=== PATIENT | male | born 1985 | race Caucasian/White ===

== ENCOUNTER 2017-11-26 23:10 | Emergency (ER) | payer BC, OTHER ==
[2017-11-26] MEDS ORDERED: TORAdol 30 mg Injection IM ONE (23:21)
[2017-11-26] MEDS ORDERED: Rocephin 1000 MG INJ IM ONE (23:21)
[2017-11-26] MEDS ORDERED: Rocephin 1000 MG INJ ONE (23:25)
[2017-11-26] MEDS ORDERED: TORAdol 30 mg Injection ONE ×2 (23:25→23:30)
--- NOTE | 2017-11-26 23:32 | ERPHSYRPT ---
- History of Present Illness Time Seen by Provider: 11/26/17 23:22 Source: patient Exam Limitations: no limitations (physical lately we do the whole ) Patient Subjective Stated Complaint: pt states he has beenhaving rt jaw pain and swelling since yesterday. Triage Nursing Assessment: pt alert and oriented, answers questions approp. pt ambulatoryw ith steady gait noted, respirations nonlabored with lungs cta. skin warm and dry. swelling noted to rt lower jaw. broken tooth noted to rt lower mouth with swelling of gums ntoed. Physician History: 32-year-old white male arrives with complaint of pain in the right mandibular region and swelling symptoms since yesterday. Denies injury. Past medical history includes pneumonitis, he states he had an autoimmune disease in the past old chart shows sarcoidosis. Past surgical history includes shoulder surgery ORIF of the right femur. Social history positive tobacco use. Timing/Duration: yesterday Severity: moderate Modifying Factors: Improves With: nothing Associated Symptoms: other (pain and swelling right mandibular region), No nausea, No vomiting, No abdominal pain, No shortness of breath, No heartburn, No diaphoresis, No cough, No chills, No chest pain, No fever, No headaches, No loss of appetite, No malaise, No rash, No syncope, No seizure, No weakness Allergies/Adverse Reactions: No Known Drug Allergies Allergy (Verified 11/26/17 23:27) Hx Tetanus, Diphtheria Vaccination/Date Given: Yes Hx Influenza Vaccination/Date Given: No Hx Pneumococcal Vaccination/Date Given: No Immunizations Up to Date: Yes - Review of Systems Constitutional: No Symptoms Eyes: No Symptoms Ears, Nose, & Throat: Mouth Pain, Mouth Swelling, No Ear Pain, No Ear Discharge , No Hearing Changes, No Tinnitus, No Nose Pain, No Nose Congestion, No Nose Discharge, No Sinus Drainage, No Epistaxis, No Loose Teeth, No Throat Pain, No Throat Swelling, No Hoarse, No Painful Swallowing, No Snoring, No Stridor Respiratory: No Cough, No Dyspnea Cardiac: No Chest Pain, No Edema, No Syncope Abdominal/Gastrointestinal: No Abdominal Pain, No Nausea, No Vomiting, No Diarrhea Genitourinary Symptoms: No Dysuria Musculoskeletal: No Back Pain, No Neck Pain Skin: No Symptoms, No Rash Neurological: No Dizziness, No Focal Weakness, No Sensory Changes Psychological: No Symptoms Endocrine: No Symptoms All Other Systems: Reviewed and Negative - Past Medical History Pertinent Past Medical History: Yes Respiratory History: Other Musculoskeletal History: Other History: Other Other Medical History: SARCOIDOSIS, CHRISTINA IN RT FEMUR - Past Surgical History Past Surgical History: Yes (ORIF right femur) - Social History Smoking Status: Never smoker Exposure to second hand smoke: No Drug Use: none Patient Lives Alone: No - Nursing Vital Signs Nursing Vital Signs: Initial Vital Signs Temperature 98.7 F 11/26/17 23:17 Pulse Rate 85 11/26/17 23:17 Respiratory Rate 16 11/26/17 23:17 Blood Pressure 188/123 11/26/17 23:17 O2 Sat by Pulse Oximetry 97 11/26/17 23:17 Pain Scale Pain Intensity 8 - Physical Exam General Appearance: mild distress, alert, other (well-developed well-nourished white male, swelling in the right mandibular region) Eye Exam: PERRL/EOMI, eyes nml inspection Ears, Nose, Throat Exam: TMs normal, pharynx normal, moist mucous membranes, other (carious teeth in the right mandibular region swelling and tenderness of the mandibular region correspondg to these, area tender with palpation) Neck Exam: normal inspection, non-tender, supple, full range of motion Respiratory Exam: normal breath sounds, lungs clear, No respiratory distress Cardiovascular Exam: regular rate/rhythm, normal heart sounds, normal peripheral pulses Gastrointestinal/Abdomen Exam: soft, normal bowel sounds, No tenderness, No mass Back Exam: normal inspection, normal range of motion, No CVA tenderness, No vertebral tenderness Extremity Exam: normal inspection, normal range of motion, pelvis stable Neurologic Exam: alert, oriented x 3, cooperative, 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, normal mood/affect, nml cerebellar function, nml station & gait, sensation nml, No motor deficits Skin Exam: normal color, warm, dry, No rash Lymphatic Exam: No adenopathy SpO2 Interpretation: normal (97%) SpO2: 97 Oxygen Delivery: Room Air - Course Nursing assessment & vital signs reviewed: Yes Ordered Tests: Medication Summary Discontinued Medications Generic Name Dose Route Start Last Admin Trade Name Freq PRN Reason Stop Dose Admin Hydrocodone Bitart/Acetaminophen 2 tab 11/26/17 23:36 [place] 5/325 Mg PO 11/26/17 23:37 SENT HOME W/ PATIENT ONE Ceftriaxone Sodium 1,000 mg 11/26/17 23:21 Rocephin 1000 Mg Inj IM 11/26/17 23:22 STAT ONE Ceftriaxone Sodium Confirm 11/26/17 23:25 Rocephin 1000 Mg Inj Administered 11/26/17 23:26 Dose 1,000 mg .ROUTE .STK-MED ONE Clindamycin HCl 300 mg 11/26/17 23:36 Cleocin 150 Mg Capsule PO 11/26/17 23:37 STAT ONE Ketorolac Tromethamine 60 mg 11/26/17 23:21 Toradol 30 Mg Injection IM 11/26/17 23:22 STAT ONE Ketorolac Tromethamine Confirm 11/26/17 23:25 Toradol 30 Mg Injection Administered 11/26/17 23:26 Dose 30 mg .ROUTE .STK-MED ONE Ketorolac Tromethamine Confirm 11/26/17 23:30 Toradol 30 Mg Injection Administered 11/26/17 23:31 Dose 30 mg .ROUTE .STK-MED ONE - Progress Progress: improved Progress Note: 11/26/17 23:31 32-year-old white male arrives with complaint of pain and swelling in the right mandibular region patient with carious teeth in this area. This is been going on for 2 days. On physical examination patient has a carious teeth, dental abscess right mandibular region. Will go ahead and give the patient Rocephin 1 g IM Toradol 60 mg IM home with prescription for [place] and clindamycin patient will need to follow-up with his dentist. . 11/26/17 23:37 the patient's blood pressure somewhat elevated however he states he has white coat syndrome and he is having pain. Patient will be advised to follow-up with his family doctor to have his blood pressure rechecked. - Departure Time of Disposition: 23:31 Departure Disposition: Home Clinical Impression: Pain due to dental caries, Dental abscess Condition: Fair Critical Care Time: No Referrals: CARMEN BRAVO NP [Primary Care Provider] - Additional Instructions: Return home Clindamycin and [place] as prescribed Cold packs to area (external) 24-48 hours Avoid excessively hot or cold foods Follow-up with your dentist. Return for acute distress or for severe symptoms. Prescriptions: Clindamycin HCl 300 mg PO TID #30 capsule Hydrocodone/Acetaminophen [[place] 5-325 Tablet] 1 tab PO Q4-6HPRN PRN #12 tablet MDD 6 tablets PRN Reason: Pain
[2017-11-26] MEDS ORDERED: CLEOCIN 150 MG CAPSULE PO ONE (23:36)
[2017-11-26] MEDS ORDERED: NORCO 5/325 MG PO ONE (23:36)
[2017-11-26] MEDS ORDERED: CLEOCIN 150 MG CAPSULE ONE (23:40)
[2017-11-26] MEDS ORDERED: NORCO 5/325 MG ONE (23:40)
[2017-11-27 00:09] VITALS: BP 158/107; PULSE 86; O2SAT 96
== END 2017-11-27 00:09 | disposition home or self-care (01) ==
LOC: ED 23:10
DX: K02.9 Dental caries, unspecified (principal); K04.7 Periapical abscess without sinus
CPT/HCPCS: 99283; J0696; J1885; A9270-GY

== ENCOUNTER 2018-02-01 01:50 | Emergency (ER) | payer BC ==
[2018-02-01] MEDS: BABY ASPIRIN 81 MG CHEW PO ONE (02:09)
--- NOTE | 2018-02-01 02:13 | ERPHSYRPT ---
- History of Present Illness Time Seen by Provider: 02/01/18 02:01 Historian: patient Exam Limitations: no limitations Patient Subjective Stated Complaint: Pt arrives to ER clutching left chest grunting his respirations and yelling out in pain refusing to properly answer questions mumbling and giving short vague responses. Pt has great color and is not diaphoretic. Pt tachycardic 115bpm ST and decreasing as he calms himself down. BP is probably inaccurate d/t voluntary tensing of his arm and rolling around in bed as if in pain. pt states this chest pain began around midnight induced by an arguement with his from which he walked away and the pain became so bad his father drove him here. Triage Nursing Assessment: see above Physician History: This is a 32-year-old white male with history of pneumonitis sarcoidosis. Who arrives with complaint of pain in his left anterior chest. Sharp in nature which began after patient had an argument with his . He denies shortness of breath no nausea no vomiting. Past medical history includes pneumonitis and sarcoidosis. . Past surgical history includes shoulder surgery ORIF of the right femur. Timing/Duration: today Activities at Onset: emotional stress Quality: sharpness Location: other (left upper anterior chest) Chest Pain Radiation: no radiation Severity of Pain-Max: moderate Severity of Pain-Current: moderate Modifying Factors: Improves With: nothing Associated Symptoms: No nausea, No vomiting, No palpitations, No heartburn, No abdominal pain, No shortness of breath, No cough, No hurts to breathe, No diaphoresis, No chills, No fever, No fatigue, No weakness, No swelling/lump in chest ( Auty just a few short ), No syncope, No rash, No headache, No dizziness , No edema, No back pain Nitro Today/Relief: no nitro taken today Aspirin Treatment Today: 81 mg x 4, provided by ED Allergies/Adverse Reactions: No Known Drug Allergies Allergy (Verified 02/01/18 02:08) Hx Tetanus, Diphtheria Vaccination/Date Given: Yes Hx Influenza Vaccination/Date Given: No Hx Pneumococcal Vaccination/Date Given: No - Review of Systems Constitutional: No Fever, No Chills Eyes: No Symptoms Ears, Nose, & Throat: No Symptoms Respiratory: No Cough, No Dyspnea Cardiac: Chest Pain (sharp pain left upper chest) Abdominal/Gastrointestinal: No Abdominal Pain, No Nausea, No Vomiting, No Diarrhea Genitourinary Symptoms: No Dysuria Musculoskeletal: No Back Pain, No Neck Pain Skin: No Rash Neurological: No Dizziness, No Focal Weakness, No Sensory Changes Psychological: No Symptoms Endocrine: No Symptoms All Other Systems: Reviewed and Negative - Past Medical History Pertinent Past Medical History: Yes Respiratory History: Other Musculoskeletal History: Other History: Other Other Medical History: SARCOIDOSIS, CHRISTINA IN RT FEMUR - Past Surgical History Past Surgical History: Yes - Social History Smoking Status: Former smoker Exposure to second hand smoke: No Drug Use: none Patient Lives Alone: No - Nursing Vital Signs Nursing Vital Signs: Initial Vital Signs Temperature 98.5 F 02/01/18 01:50 Pulse Rate 117 H 02/01/18 01:50 Respiratory Rate 24 02/01/18 01:50 Blood Pressure 143/107 02/01/18 01:50 O2 Sat by Pulse Oximetry 98 02/01/18 01:50 Pain Scale Pain Intensity 0 - Physical Exam General Appearance: other (well-developed well-nourished white male crying) Eye Exam: PERRL/EOMI, eyes nml inspection Ears, Nose, Throat Exam: normal ENT inspection, moist mucous membranes Neck Exam: normal inspection, non-tender, supple, full range of motion Respiratory Exam: normal breath sounds, lungs clear, No respiratory distress Cardiovascular Exam: regular rate/rhythm, normal heart sounds Gastrointestinal/Abdomen Exam: soft, No tenderness, No mass Back Exam: normal inspection, No CVA tenderness, No vertebral tenderness Extremity Exam: normal inspection, normal range of motion Neurologic Exam: alert, oriented x 3, cooperative, 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, normal mood/affect, sensation nml, No motor deficits Skin Exam: normal color, warm, dry SpO2 Interpretation: normal (98%) SpO2: 98 Oxygen Delivery: Room Air - Course Nursing assessment & vital signs reviewed: Yes EKG Interpreted by Me: RATE (120 bpm), Sinus Rhythm, NORMAL AXIS, Other (ekg: sinus tacchycardia 120 bpm, axis SI/QIII pattern no acute st or t wave changes noted.) - Radiology Exams Chest X-ray Interpretation: Interpreted by me (no acute disease process noted) Ordered Tests: Active Orders 24 hr Category Date Time Status Multimedia Designer STAT Care 02/01/18 02:06 Active EKG-ER Only STAT Care 02/01/18 02:05 Active IV Insertion STAT Care 02/01/18 02:05 Active Pulse Oximetry (ED) STAT Care 02/01/18 02:05 Active CHEST 1 VIEW (PORTABLE) Stat Exams 02/01/18 02:06 Taken ACETAMINOPHEN Stat Lab 02/01/18 02:15 Completed AMYLASE Stat Lab 02/01/18 02:15 Completed CBC W DIFF Stat Lab 02/01/18 02:15 Completed CMP Stat Lab 02/01/18 02:15 Completed D-DIMER QUANTITATION Stat Lab 02/01/18 02:15 Completed ETHYL ALCOHOL Stat Lab 02/01/18 02:15 Completed LIPASE Stat Lab 02/01/18 02:15 Completed Manual Differential NC Stat Lab 02/01/18 02:15 Completed PROTIME WITH INR Stat Lab 02/01/18 02:15 Completed PTT Stat Lab 02/01/18 02:15 Completed SALICYLATE Stat Lab 02/01/18 02:15 Completed TROPONIN Q3H Lab 02/01/18 02:15 Completed TROPONIN Q3H Lab 02/01/18 08:15 Ordered TROPONIN Q3H Lab 02/01/18 11:15 Ordered TROPONIN Q3H Lab 02/01/18 14:15 Ordered Urine Triage Profile Stat Lab 02/01/18 03:22 Completed Medication Summary Discontinued Medications Generic Name Dose Route Start Last Admin Trade Name Erasmoq PRN Reason Stop Dose Admin Aspirin 324 mg 02/01/18 02:05 02/01/18 02:09 Baby Aspirin 81 Mg Chew PO 02/01/18 02:06 324 mg STAT ONE Administration Aspirin Confirm 02/01/18 03:49 Baby Aspirin 81 Mg Chew Administered 02/01/18 03:50 Dose 324 mg .ROUTE .STK-MED ONE Sodium Chloride Confirm 02/01/18 03:28 Sodium Chloride 0.9% 1000 Ml Administered 02/01/18 03:29 Dose 1,000 mls @ ud .ROUTE .STK-MED ONE Thiamine HCl Confirm 02/01/18 04:06 Thiamine 200 Mg/2 Ml Administered 02/01/18 04:07 Dose 200 mg .ROUTE .STK-MED ONE Lab/Rad Data: Laboratory Result Diagrams 02/01/18 02:15 02/01/18 02:15 Laboratory Results 02/01/18 02/01/18 02/01/18 Range/Units 03:22 02:15 02:15 WBC (4.0-10.5) K/mm3 RBC (4.1-5.6) M/mm3 Hgb (12.5-18.0) gm/dl Hct (42-50) % MCV (78-100) fl MCH (26-32) pg MCHC (32-36) g/dl RDW (11.5-14.0) % Plt Count (150-450) K/mm3 MPV (6-9.5) fl Absolute Granulocytes (1.4-6.9) Segmented Neutrophils (36.-66.) % Band Neutrophils (0.0-2.0) % Lymphocytes (Manual) (24-44) % Monocytes (Manual) (0.0-12.0) % Eosinophils (Manual) (0.00-3.0) % Platelet Estimate (NORMAL) RBC Morphology PT 12.8 (8.83-12.87) SECONDS INR 1.10 (0.8-3.0) APTT 27.1 (24.1-36.1) SECONDS D-Dimer 323 (215-500) ng/mL Sodium (137-145) mmol/L Potassium (3.5-5.1) mmol/L Chloride (98-107) mmol/L Carbon Dioxide (22-30) mmol/L Anion Gap (5-15) MEQ/L BUN (9-20) mg/dL Creatinine (0.66-1.25) mg/dL Estimated GFR ML/MIN Glucose (74-106) mg/dL Calcium (8.4-10.2) mg/dL Total Bilirubin (0.2-1.3) mg/dL AST (17-59) U/L ALT (0-50) U/L Alkaline Phosphatase (38-126) U/L Troponin I < 0.012 (0.000-0.034) ng/mL Serum Total Protein (6.3-8.2) g/dL Albumin (3.5-5.0) g/dL Amylase (30-110) U/L Lipase (23-300) U/L Salicylates (2-20) mg/dL Urine Opiates Level NEGATIVE (NEGATIVE) Ur Methadone NEGATIVE (NEGATIVE) Acetaminophen (10-30) ug/ml Urine Barbiturates NEGATIVE (NEGATIVE) Ur Phencyclidine (PCP) NEGATIVE (NEGATIVE) Urine Amphetamine NEGATIVE (NEGATIVE) U Benzodiazepine Level NEGATIVE (NEGATIVE) Urine Cocaine NEGATIVE (NEGATIVE) Urine Marijuana (THC) NEGATIVE (NEGATIVE) Ethyl Alcohol (0-10) mg/dL 02/01/18 02/01/18 Range/Units 02:15 02:15 WBC 11.2 H (4.0-10.5) K/mm3 RBC 5.00 (4.1-5.6) M/mm3 Hgb 15.3 (12.5-18.0) gm/dl Hct 42.2 (42-50) % MCV 84.4 (78-100) fl MCH 30.6 (26-32) pg MCHC 36.3 H (32-36) g/dl RDW 12.9 (11.5-14.0) % Plt Count 271 (150-450) K/mm3 MPV 8.8 (6-9.5) fl Absolute Granulocytes 7.68 H (1.4-6.9) Segmented Neutrophils 76 H (36.-66.) % Band Neutrophils 1 (0.0-2.0) % Lymphocytes (Manual) 18 L (24-44) % Monocytes (Manual) 4 (0.0-12.0) % Eosinophils (Manual) 1 (0.00-3.0) % Platelet Estimate NORMAL (NORMAL) RBC Morphology NORMAL PT (8.83-12.87) SECONDS INR (0.8-3.0) APTT (24.1-36.1) SECONDS D-Dimer (215-500) ng/mL Sodium 138 (137-145) mmol/L Potassium 3.7 (3.5-5.1) mmol/L Chloride 102 (98-107) mmol/L Carbon Dioxide 19 L (22-30) mmol/L Anion Gap 21.1 H (5-15) MEQ/L BUN 15 (9-20) mg/dL Creatinine 0.80 (0.66-1.25) mg/dL Estimated GFR > 60.0 ML/MIN Glucose 116 H (74-106) mg/dL Calcium 9.3 (8.4-10.2) mg/dL Total Bilirubin 0.50 (0.2-1.3) mg/dL AST 26 (17-59) U/L ALT 26 (0-50) U/L Alkaline Phosphatase 78 (38-126) U/L Troponin I (0.000-0.034) ng/mL Serum Total Protein 8.1 (6.3-8.2) g/dL Albumin 4.9 (3.5-5.0) g/dL Amylase 52 (30-110) U/L Lipase 140 (23-300) U/L Salicylates < 1.0 L (2-20) mg/dL Urine Opiates Level (NEGATIVE) Ur Methadone (NEGATIVE) Acetaminophen < 10 L (10-30) ug/ml Urine Barbiturates (NEGATIVE) Ur Phencyclidine (PCP) (NEGATIVE) Urine Amphetamine (NEGATIVE) U Benzodiazepine Level (NEGATIVE) Urine Cocaine (NEGATIVE) Urine Marijuana (THC) (NEGATIVE) Ethyl Alcohol 190 H (0-10) mg/dL - Progress Progress: improved Air Movement: fair Progress Note: 02/01/18 03:26 32-year-old white male with history of sarcoidosis arrives with complaint of pain in the left upper anterior chest symptoms since just prior to arrival he had had a argument just before this came on. Patient's EKG sinus tachycardia [address] or T wave changes are noted patient's troponin is within normal limits d-dimer within normal limits chemistry essentially normal patient's blood alcohol level is remarkable for 190 anion gap is increased at 21.1 Patient is feeling better chest x-ray no acute disease process noted. I've offered to repeat the patient's troponin he does not want to wait to do this. 02/01/18 04:00 Patient is feeling better. Receiving a liter of normal saline/. He does not want to repeat troponin. Will plan to discharge patient once his fluids have been infused. - Departure Time of Disposition: 04:59 Departure Disposition: Home Clinical Impression: Non-cardiac chest pain Condition: Fair Critical Care Time: No Referrals: CARMEN BRAVO NP [Primary Care Provider] - Additional Instructions: return home.rest. Plenty of fluids follow-up with your family doctor. No driving tonight, do not drink any more alcohol. Return for acute distress or for severe symptoms.
[2018-02-01 02:18] LABS: Granulocyte Absolute (ANC) 7.68 (1.4-6.9); Hematocrit 42.2 % (42-50); Hemoglobin 15.3 gm/dl (12.5-18.0); Mean Cell Volume 84.4 fl (78-100); Mean Corpuscular Hemoglobin 30.6 pg (26-32); Mean Corpuscular Hgb Concent. 36.3 g/dl (32-36); Mean Platelet Volume 8.8 fl (6-9.5); Platelet Count 271 K/mm3 (150-450); Red Cell Distribution Width 12.9 % (11.5-14.0); White Blood Count 11.2 K/mm3 (4.0-10.5)
[2018-02-01 02:37] LABS: INR 1.1 (0.8-3.0)
[2018-02-01 02:39] LABS: PTT 27.1 SECONDS (24.1-36.1)
[2018-02-01 02:42] LABS: ALBUMIN 4.9 g/dL (3.5-5.0); ALKALINE PHOSPHATASE 78 U/L (38-126); AMYLASE 52 U/L (30-110); ANION GAP 21.1 MEQ/L (5-15); BLOOD UREA NITROGEN 15 mg/dL (9-20); CHLORIDE 102 mmol/L (98-107); Calcium 9.3 mg/dL (8.4-10.2); Carbon Dioxide 19 mmol/L (22-30); ETHYL ALCOHOL 190 mg/dL (0-10); Glucose 116 mg/dL (74-106); LIPASE 140 U/L (23-300); Potassium 3.7 mmol/L (3.5-5.1); SGOT/AST 26 U/L (17-59); SGPT/ALT 26 U/L (0-50); SODIUM 138 mmol/L (137-145); Total Protein 8.1 g/dL (6.3-8.2)
[2018-02-01 02:47] LABS: ACETAMINOPHEN < 10 ug/ml (10-30); SALICYLATE < 1.0 mg/dL (2-20)
[2018-02-01 03:25] LABS: BAND 1 % (0.0-2.0); Eosinophil 1 % (0.00-3.0); Lymphocytes 18 % (24-44); Monocyte 4 % (0.0-12.0); Neutrophils 76 % (36.-66.); Platelet Estimate NORMAL (NORMAL); Total Cells Counted 100
[2018-02-01] MEDS ORDERED: Sodium Chloride 0.9% 1000 ML 1,000 ML ONE (03:28)
[2018-02-01] MEDS ORDERED: BABY ASPIRIN 81 MG CHEW ONE (03:49)
[2018-02-01 03:51] LABS: Amphetamine,Urine NEGATIVE (NEGATIVE); Barbiturate,Urine NEGATIVE (NEGATIVE); Benzodiazepine,Urine NEGATIVE (NEGATIVE); Cocaine,Urine NEGATIVE (NEGATIVE); Methadone,Urine NEGATIVE (NEGATIVE); Opiate,Urine NEGATIVE (NEGATIVE); PCP,Urine NEGATIVE (NEGATIVE); THC,Urine NEGATIVE (NEGATIVE)
[2018-02-01 03:56] VITALS: PULSE 88
[2018-02-01] MEDS: Sodium Chloride 0.9% 1000 ML 1,000 ML IV STA (04:05)
[2018-02-01] MEDS ORDERED: THIAMINE 200 MG/2 ML ONE (04:06)
[2018-02-01 05:02] VITALS: BP 126/81
[2018-02-01 05:04] VITALS: O2SAT 98
--- NOTE | 2018-02-01 09:01 | XRAY ---
Indication: Chest pain. Comparison: July 29, 2014. Portable apical lordotic chest demonstrates normal heart, lungs, and bony thorax.
== END 2018-02-01 05:10 | disposition home or self-care (01) ==
LOC: ED 01:50
DX: R07.89 Other chest pain (principal)
CPT/HCPCS: 36000; 36415; 71045; 80053; 80307; 82150; 83690; 84484; 85025; 85379; 85610; 85730; 93005; 93041; 96360; 96374; 99284; G0481; A9270-GY; G0480